=== PATIENT | male | born 1950 | race Hispanic/Latino ===

== ENCOUNTER 2017-07-04 23:26 | Emergency (ER) | payer MEDICARE ==
[2017-07-04] MEDS ORDERED: ASPIRIN 325 MG TABLET ONE (23:56)
[2017-07-04] MEDS ORDERED: NITROGLYCERIN 0.4 MG SL TAB SL ONE (23:57)
[2017-07-05 00:13] LABS: BASOPHILS % (AUTO) 0.4 % (0.0-5.0); EOSINOPHILS % (AUTO) 0.3 % (0.0-8.0); HEMATOCRIT 45.7 % (42-54); LYMPHOCYTES % (AUTO) 14.6 % (21.0-51.0); MEAN CORPUSCULAR HEMOGLOBIN 31.6 pg (27.0-33.0); MEAN CORPUSCULAR HGB CONC 35.2 g/dL (32.0-36.0); MEAN CORPUSCULAR VOLUME 89.6 fL (79-99); MONOCYTES % (AUTO) 6.7 % (3.0-13.0); PLATELET COUNT (AUTO) 160 K/uL (130-400); RED BLOOD CELL COUNT(AUTO) 5.11 MIL/uL (4.50-6.20); RED CELL DISTRIBUTION WIDTH 13.5 % (11.0-15.5)
[2017-07-05 00:20] LABS: CARBON DIOXIDE 30 mmol/L (21-32); CHLORIDE 99 mmol/L (101-111); GLOMERULAR FILTR. RATE CALC 80 mL/min (>60); GLUCOSE,RANDOM 117 mg/dL (70-105); POTASSIUM 4.1 mmol/L (3.5-5.1); SODIUM SERUM 138 mmol/L (136-145); UREA NITROGEN, BLOOD 13 mg/dL (7-18)
[2017-07-05 00:34] LABS: ALANINE AMINOTRANSFERASE 104 U/L (12-78); ALBUMIN 3.9 g/dL (3.5-5.0); ASPARTATE AMINOTRANSFERASE 91 U/L (10-37); BILIRUBIN,TOTAL 0.9 mg/dL (0.2-1.0); CREATINE KINASE MB 1.1 ng/mL (0.5-3.6); CREATINE KINASE, TOTAL 114 U/L (21-232); MYOGLOBIN 70 ng/mL (10-92); TROPONIN I < 0.04 ng/mL (0.00-0.06)
[2017-07-05] MEDS ORDERED: ONDANSETRON HCL MDV 20ML 2 MG/ML VIAL ONE (01:07)
== END 2017-07-05 03:26 | disposition home or self-care (01) ==
LOC: EDH 23:26
DX: R07.89 Other chest pain (principal); R42 Dizziness and giddiness; R11.0 Nausea; R53.1 Weakness; F14.10 Cocaine abuse, uncomplicated; Z72.0 Tobacco use
CPT/HCPCS: 36415; 71045; 80053; 82550; 82553; 83874; 84484; 85025; 93005; 96374

== ENCOUNTER 2017-08-12 18:52 | Emergency (ER) | payer MEDICARE, OTHER ==
[2017-08-12] MEDS ORDERED: ASPIRIN 325 MG TABLET ONE (19:10)
[2017-08-12 19:14] LABS: BASOPHILS % (AUTO) 0.5 % (0.0-5.0); EOSINOPHILS % (AUTO) 1.1 % (0.0-8.0); HEMATOCRIT 44.8 % (42-54); LYMPHOCYTES % (AUTO) 12.9 % (21.0-51.0); MEAN CORPUSCULAR HEMOGLOBIN 31.6 pg (27.0-33.0); MEAN CORPUSCULAR HGB CONC 34.8 g/dL (32.0-36.0); MEAN CORPUSCULAR VOLUME 90.6 fL (79-99); MONOCYTES % (AUTO) 7.7 % (3.0-13.0); NEUTROPHILS % (AUTO) 77.8 % (40.0-77.0); PLATELET COUNT (AUTO) 155 K/uL (130-400); RED BLOOD CELL COUNT(AUTO) 4.94 MIL/uL (4.50-6.20); RED CELL DISTRIBUTION WIDTH 13.4 % (11.0-15.5); WHITE BLOOD COUNT (AUTO) 6.7 K/uL (4.8-10.8)
[2017-08-12 19:33] LABS: CREATININE 1.1 mg/dL (0.5-1.5)
[2017-08-12 19:35] LABS: INR 0.92 (0.85-1.15); PARTIAL THROMBOPLASTIN TIME 24.3 SEC (26.3-35.5); PROTHROMBIN TIME 9.7 SEC (9.6-11.6)
[2017-08-12] MEDS ORDERED: SODIUM CHLORIDE 0.9% 1000ML 1,000 ML IV ONE (19:48)
[2017-08-12 19:51] LABS: APPEARANCE,URINE Clear (CLEAR); BILIRUBIN,URINE Negative (NEGATIVE); COLOR,URINE Yellow (YELLOW); GLUCOSE, URINE (UA) Negative (NEGATIVE); KETONES,URINE Negative (NEGATIVE); LEUKOCYTE ESTERASE ,URINE Negative (NEGATIVE); NITRATE,URINE Negative (NEGATIVE); OCCULT BLOOD,URINE Negative (NEGATIVE); PROTEIN,URINE Negative (NEGATIVE); UROBILINOGEN,URINE 0.2 mg/dL (0.2-1.0)
[2017-08-12 19:51] LABS: ALBUMIN 4.1 g/dL (3.5-5.0); BILIRUBIN,TOTAL 0.6 mg/dL (0.2-1.0); CREATINE KINASE MB 1.6 ng/mL (0.5-3.6); TOTAL PROTEIN, SERUM 8.3 g/dL (6.0-8.3)
[2017-08-12 19:58] LABS: AMPHET/METH SCREEN,URINE NEGATIVE (NEGATIVE); BARBITURATE SCREEN, URINE NEGATIVE (NEGATIVE); BENZODIAZEPINES SCREEN,URINE NEGATIVE (NEGATIVE); CANNABINOID SCREEN,URINE NEGATIVE (NEGATIVE); COCAINE SCREEN,URINE POSITIVE (NEGATIVE); OPIATE SCREEN,URINE NEGATIVE (NEGATIVE); PHENCYCLIDINE SCREEN,URINE NEGATIVE (NEGATIVE)
[2017-08-12 19:59] LABS: B-TYPE NATRIURETIC PEPTIDE 16 pg/mL (0-100)
== END 2017-08-12 20:44 | disposition home or self-care (01) ==
LOC: EDH 18:52
DX: E86.0 Dehydration (principal); R07.89 Other chest pain; R51 Headache; R42 Dizziness and giddiness; F41.9 Anxiety disorder, unspecified; F14.10 Cocaine abuse, uncomplicated
CPT/HCPCS: 36415; 71045; 80053; 80305; 81003; 82550; 82553; 83874; 83880; 84484; 85025; 85610; 85730; 93005; 94761; 96360; 99285; G0480; J7030

== ENCOUNTER 2018-01-31 05:45 | Emergency (ER) | payer OTHER ==
[2018-01-31 06:23] LABS: AMPHET/METH SCREEN,URINE NEGATIVE (NEGATIVE); BARBITURATE SCREEN, URINE NEGATIVE (NEGATIVE); BENZODIAZEPINES SCREEN,URINE NEGATIVE (NEGATIVE); CANNABINOID SCREEN,URINE NEGATIVE (NEGATIVE); COCAINE SCREEN,URINE POSITIVE (NEGATIVE); OPIATE SCREEN,URINE NEGATIVE (NEGATIVE); PHENCYCLIDINE SCREEN,URINE NEGATIVE (NEGATIVE)
[2018-01-31] MEDS ORDERED: LORAZEPAM 2 MG/ML 1 ML VIAL ONE (06:38)
== END 2018-01-31 09:23 | disposition home or self-care (01) ==
LOC: EDH 05:45
DX: G44.40 Drug-induced headache, not elsewhere classified, not intractable (principal); T40.5X5A Adverse effect of cocaine, initial encounter; F19.129 Other psychoactive substance abuse with intoxication, unspecified; Y92.89 Other specified places as the place of occurrence of the external cause
CPT/HCPCS: 36415; 70450; 80305; 84484; 93005; 96374; 99285; G0481; J2060

== ENCOUNTER 2018-02-28 16:46 | Observation (INO) | payer OTHER ==
[~2018-02-28] VITALS: Ht 180.3 cm; Wt 111.0 kg
[2018-02-28 17:46] LABS: BASOPHILS % (AUTO) 0.5 % (0.0-5.0); EOSINOPHILS % (AUTO) 0.8 % (0.0-8.0); HEMATOCRIT 37.8 % (42-54); LYMPHOCYTES % (AUTO) 11.4 % (21.0-51.0); MEAN CORPUSCULAR HEMOGLOBIN 34.1 pg (27.0-33.0); MEAN CORPUSCULAR HGB CONC 35.1 g/dL (32.0-36.0); MEAN CORPUSCULAR VOLUME 97.2 fL (79-99); MONOCYTES % (AUTO) 9.2 % (3.0-13.0); NEUTROPHILS % (AUTO) 78.1 % (40.0-77.0); NUCLEATED RED BLOOD CELLS 0.2 % (0.0-0.19); PLATELET COUNT (AUTO) 94 K/uL (130-400); RED BLOOD CELL COUNT(AUTO) 3.89 MIL/uL (4.50-6.20); RED CELL DISTRIBUTION WIDTH 15.8 % (11.0-15.5); WHITE BLOOD COUNT (AUTO) 7.1 K/uL (4.8-10.8)
[2018-02-28] MEDS ORDERED: HYDROXYZINE HCL 25 MG TABLET ONE (17:56)
[2018-02-28] MEDS ORDERED: HYDROCORTISONE SOD SUCCINATE 100 MG/2 ML VIAL ONE (17:56)
[2018-02-28] MEDS ORDERED: FAMOTIDINE/PF 20 MG/2 ML VIAL IV ONE (17:56)
[2018-02-28 17:58] LABS: CREATININE 1.1 mg/dL (0.5-1.5); POTASSIUM 4.2 mmol/L (3.5-5.1)
[2018-02-28 18:03] LABS: ALBUMIN 2.9 g/dL (3.5-5.0); BILIRUBIN,DIRECT 1.4 mg/dL (0.0-0.3); BILIRUBIN,TOTAL 1.6 mg/dL (0.2-1.0); TOTAL PROTEIN, SERUM 6.1 g/dL (6.0-8.3)
[2018-02-28 20:35] VITALS: BP 152/104
[2018-02-28] MEDS ORDERED: CLONIDINE HCL 0.1 MG TABLET PO PRN (21:00)
[2018-02-28] MEDS ORDERED: DIPHENHYDRAMINE HCL 25 MG CAPSULE PO PRN (21:00)
[2018-02-28] MEDS ORDERED: ONDANSETRON HCL 4 MG/2 ML VIAL IVP PRN (21:00)
[2018-02-28] MEDS ORDERED: SODIUM CHLORIDE 0.9% 10 ML VIAL IVP PRN (21:00)
[2018-02-28] MEDS: HYDROXYZINE HCL 25 MG TABLET PO SCH (22:07)
[2018-02-28] MEDS ORDERED: FAMO40TA75 PO (23:26)
[2018-02-28] MEDS ORDERED: CETI10TA86 PO (23:26)
[2018-02-28 23:45] VITALS: BP 151/77
[2018-03-01] MEDS: ZOLPIDEM TARTRATE 5 MG TAB PO PRN ×2 (00:09→22:32)
[2018-03-01] MEDS ORDERED: SODIUM CHLORIDE 0.9% 100 ML IV ONE (02:55)
[2018-03-01] MEDS: HYDROCORTISONE SOD SUCCINATE 250 MG/2 ML VIAL IVP SCH ×3 (03:05→21:34)
[2018-03-01 03:55] VITALS: BP 150/83
[2018-03-01 04:33] LABS: MEAN CORPUSCULAR HEMOGLOBIN 34.4 pg (27.0-33.0); MEAN CORPUSCULAR HGB CONC 35.2 g/dL (32.0-36.0); MEAN CORPUSCULAR VOLUME 97.7 fL (79-99); NUCLEATED RED BLOOD CELLS 0.1 % (0.0-0.19); PLATELET COUNT (AUTO) 85 K/uL (130-400); RED BLOOD CELL COUNT(AUTO) 3.48 MIL/uL (4.50-6.20); RED CELL DISTRIBUTION WIDTH 16.1 % (11.0-15.5); WHITE BLOOD COUNT (AUTO) 4.4 K/uL (4.8-10.8)
[2018-03-01 04:57] LABS: ALBUMIN 2.5 g/dL (3.5-5.0); BILIRUBIN,TOTAL 1.3 mg/dL (0.2-1.0); POTASSIUM 3.4 mmol/L (3.5-5.1); TOTAL PROTEIN, SERUM 5.5 g/dL (6.0-8.3)
[2018-03-01] MEDS ORDERED: GADODIAMIDE 10 MMOL/20 ML ML IV ONE (08:30)
[2018-03-01 08:44] VITALS: BP 166/78
[2018-03-01 08:45] LABS: LYMPHOCYTES % (MANUAL) 1 % (22-44); MAN.DIFF COMMENT-IMPRESSION MANUAL DIFFERENTIAL; MONOCYTES % (MANUAL) 3 % (2-9); REACTIVE LYMPHOCYTES 11 % (0-0); SEGMENTED NEUTROPHILS % 85 % (40-70)
[2018-03-01 08:48] LABS: HEMATOCRIT 35.3 % (42-54); MEAN CORPUSCULAR HEMOGLOBIN 34.2 pg (27.0-33.0); MEAN CORPUSCULAR VOLUME 97.9 fL (79-99); NUCLEATED RED BLOOD CELLS 0.2 % (0.0-0.19); PLATELET COUNT (AUTO) 80 K/uL (130-400); RED BLOOD CELL COUNT(AUTO) 3.61 MIL/uL (4.50-6.20); RED CELL DISTRIBUTION WIDTH 15.5 % (11.0-15.5); WHITE BLOOD COUNT (AUTO) 4.6 K/uL (4.8-10.8)
[2018-03-01] MEDS: HYDROXYZINE HCL 25 MG TABLET PO SCH ×3 (11:15→21:34)
[2018-03-01] MEDS: FAMOTIDINE/PF 20 MG/2 ML VIAL IV SCH (11:15)
[2018-03-01 12:37] VITALS: BP 168/88
[2018-03-01 16:59] VITALS: BP 115/77
[2018-03-02 00:58] VITALS: BP 148/109
[2018-03-02 02:35] VITALS: BP 147/73
[2018-03-02 04:28] VITALS: BP 133/81
[2018-03-02] MEDS: HYDROCORTISONE SOD SUCCINATE 250 MG/2 ML VIAL IVP SCH ×2 (05:56→14:00)
[2018-03-02 07:00] VITALS: BP 136/89
[2018-03-02] MEDS: HYDROXYZINE HCL 25 MG TABLET PO SCH ×2 (09:20→13:59)
[2018-03-02] MEDS: FAMOTIDINE/PF 20 MG/2 ML VIAL IV SCH (09:21)
[2018-03-02 11:00] VITALS: BP 151/111
== END 2018-03-02 16:30 | disposition home or self-care (01) ==
LOC: EDH 16:46 → EDHIP 17:25 → 3AH 19:57
PROVIDERS: ADMIT Internal Medicine; ATTEND Internal Medicine
DX: L29.9 Pruritus, unspecified (principal); C95.00 Acute leukemia of unspecified cell type not having achieved remission; R17 Unspecified jaundice; G47.00 Insomnia, unspecified; R94.5 Abnormal results of liver function studies; Z79.899 Other long term (current) drug therapy
CPT/HCPCS: 36415 ×2; 74183; 76705; 80048; 80053; 80076; 85025 ×2; 85027; 85060; 96374; 96375; 96376 ×2; 99284; A4510; A9579; G0378 ×47; J1720 ×4; J3490 ×4

== ENCOUNTER 2018-09-27 04:26 | Emergency (ER) | payer OTHER ==
[~2018-09-27 04:26] MED LIST: CETI10TA86 PO; FAMO40TA75 PO
[2018-09-27] MEDS ORDERED: ASPIRIN 325 MG TABLET ONE (04:44)
[2018-09-27 05:09] LABS: BASOPHILS % (AUTO) 0.4 % (0.0-5.0); EOSINOPHILS % (AUTO) 0.5 % (0.0-8.0); HEMATOCRIT 43.7 % (42-54); MEAN CORPUSCULAR HEMOGLOBIN 30.5 pg (27.0-33.0); MEAN CORPUSCULAR VOLUME 89.6 fL (79-99); MONOCYTES % (AUTO) 7.1 % (3.0-13.0); PLATELET COUNT (AUTO) 144 K/uL (130-400); RED BLOOD CELL COUNT(AUTO) 4.87 MIL/uL (4.50-6.20); RED CELL DISTRIBUTION WIDTH 15.1 % (11.0-15.5); WHITE BLOOD COUNT (AUTO) 5.8 K/uL (4.8-10.8)
[2018-09-27 05:19] LABS: POTASSIUM 3.7 mmol/L (3.5-5.1)
[2018-09-27 05:27] LABS: ALBUMIN 3.8 g/dL (3.5-5.0); BILIRUBIN,TOTAL 0.4 mg/dL (0.2-1.0); TOTAL PROTEIN, SERUM 7.4 g/dL (6.0-8.3)
[2018-09-27 05:27] LABS: AMPHET/METH SCREEN,URINE NEGATIVE (NEGATIVE); BARBITURATE SCREEN, URINE NEGATIVE (NEGATIVE); BENZODIAZEPINES SCREEN,URINE NEGATIVE (NEGATIVE); CANNABINOID SCREEN,URINE NEGATIVE (NEGATIVE); COCAINE SCREEN,URINE POSITIVE (NEGATIVE); OPIATE SCREEN,URINE NEGATIVE (NEGATIVE); PHENCYCLIDINE SCREEN,URINE NEGATIVE (NEGATIVE)
[2018-09-27 05:37] LABS: PARTIAL THROMBOPLASTIN TIME 28.3 SEC (26.3-35.5)
[2018-09-27 05:50] LABS: B-TYPE NATRIURETIC PEPTIDE 11 pg/mL (0-100)
== END 2018-09-27 06:51 | disposition home or self-care (01) ==
LOC: EDH 04:26
DX: R07.89 Other chest pain (principal); F14.10 Cocaine abuse, uncomplicated; E78.00 Pure hypercholesterolemia, unspecified; I10 Essential (primary) hypertension; Z72.0 Tobacco use
CPT/HCPCS: 36415; 71045; 80053; 80305; 82550; 83880; 84484; 85025; 85610; 85730; 93005

== ENCOUNTER 2019-08-06 04:50 | Emergency (ER) | payer OTHER ==
[2019-08-06 05:09] LABS: BASOPHILS % (AUTO) 0.5 % (0.0-5.0); EOSINOPHILS % (AUTO) 3.5 % (0.0-8.0); HEMATOCRIT 45.6 % (42-54); LYMPHOCYTES % (AUTO) 23.3 % (21.0-51.0); MEAN CORPUSCULAR HEMOGLOBIN 31.1 pg (27.0-33.0); MEAN CORPUSCULAR HGB CONC 35.1 g/dL (32.0-36.0); MEAN CORPUSCULAR VOLUME 88.5 fL (79-99); MONOCYTES % (AUTO) 7.6 % (3.0-13.0); NEUTROPHILS % (AUTO) 64.1 % (40.0-77.0); PLATELET COUNT (AUTO) 176 K/uL (130-400); RED BLOOD CELL COUNT(AUTO) 5.15 MIL/uL (4.50-6.20); RED CELL DISTRIBUTION WIDTH 12.8 % (11.0-15.5); WHITE BLOOD COUNT (AUTO) 5.9 K/uL (4.8-10.8)
[2019-08-06 05:17] LABS: RAPID GROUP A STREP NEGATIVE (NEGATIVE)
[2019-08-06 05:17] LABS: CREATININE 1.1 mg/dL (0.5-1.5); POTASSIUM 3.6 mmol/L (3.5-5.1)
[2019-08-06 05:21] LABS: INR 0.92 (0.85-1.15); PARTIAL THROMBOPLASTIN TIME 26.1 SEC (26.3-35.5)
[2019-08-06 05:22] LABS: ALBUMIN 4.1 g/dL (3.5-5.0); BILIRUBIN,TOTAL 0.3 mg/dL (0.2-1.0); TOTAL PROTEIN, SERUM 7.7 g/dL (6.0-8.3)
[2019-08-06 05:24] LABS: AMPHET/METH SCREEN,URINE NEGATIVE (NEGATIVE); BARBITURATE SCREEN, URINE NEGATIVE (NEGATIVE); BENZODIAZEPINES SCREEN,URINE NEGATIVE (NEGATIVE); CANNABINOID SCREEN,URINE NEGATIVE (NEGATIVE); COCAINE SCREEN,URINE NEGATIVE (NEGATIVE); OPIATE SCREEN,URINE NEGATIVE (NEGATIVE); PHENCYCLIDINE SCREEN,URINE NEGATIVE (NEGATIVE)
== END 2019-08-06 06:44 | disposition home or self-care (01) ==
LOC: EDH 04:50
DX: R07.89 Other chest pain (principal); E78.00 Pure hypercholesterolemia, unspecified; I10 Essential (primary) hypertension
CPT/HCPCS: 36415; 71045; 80053; 80305; 82550; 84484; 85025; 85610; 85730; 87804; 87880; 93005

== ENCOUNTER 2019-09-05 00:12 | Emergency (ER) | payer OTHER ==
[2019-09-05] MEDS ORDERED: PANTOPRAZOLE 40 MG/VIAL IVP ONE (00:13)
[2019-09-05] MEDS ORDERED: ASPIRIN 325 MG TABLET ONE (00:32)
[2019-09-05 00:51] LABS: BASOPHILS % (AUTO) 0.8 % (0.0-5.0); EOSINOPHILS % (AUTO) 5.9 % (0.0-8.0); HEMATOCRIT 47.1 % (42-54); LYMPHOCYTES % (AUTO) 24.2 % (21.0-51.0); MEAN CORPUSCULAR HEMOGLOBIN 30.7 pg (27.0-33.0); MEAN CORPUSCULAR HGB CONC 34.2 g/dL (32.0-36.0); MEAN CORPUSCULAR VOLUME 89.7 fL (79-99); MONOCYTES % (AUTO) 12.1 % (3.0-13.0); NEUTROPHILS % (AUTO) 55.1 % (40.0-77.0); PLATELET COUNT (AUTO) 150 K/uL (130-400); RED BLOOD CELL COUNT(AUTO) 5.25 MIL/uL (4.50-6.20); RED CELL DISTRIBUTION WIDTH 13.6 % (11.0-15.5); WHITE BLOOD COUNT (AUTO) 4.7 K/uL (4.8-10.8)
[2019-09-05 00:52] LABS: CREATININE 1.2 mg/dL (0.5-1.5); POTASSIUM 3.8 mmol/L (3.5-5.1)
[2019-09-05 00:57] LABS: ALBUMIN 3.7 g/dL (3.5-5.0); BILIRUBIN,TOTAL 0.4 mg/dL (0.2-1.0); TOTAL PROTEIN, SERUM 7.1 g/dL (6.0-8.3)
[2019-09-05 00:58] LABS: INR 0.95 (0.85-1.15); PARTIAL THROMBOPLASTIN TIME 25.7 SEC (26.3-35.5); PROTHROMBIN TIME 10.3 SEC (9.6-11.6)
[2019-09-05 01:35] LABS: B-TYPE NATRIURETIC PEPTIDE 7 pg/mL (0-100)
[2019-09-05] MEDS ORDERED: LIDOCAINE HCL 2% VISCOUS 15 ML UDCUP ONE (01:54)
[2019-09-05] MEDS ORDERED: MAG HYDROX/AL HYDROX/SIMETH ES 30 ML SUSP UDCUP ONE (01:55)
[2019-09-05] MEDS ORDERED: ONDANSETRON HCL 4 MG/2 ML VIAL ONE (01:55)
[2019-09-05] MEDS ORDERED: FAMOTIDINE/PF 20 MG/2 ML VIAL IV ONE (01:56)
== END 2019-09-05 02:14 | disposition home or self-care (01) ==
LOC: EDH 00:12
DX: K29.70 Gastritis, unspecified, without bleeding (principal); I10 Essential (primary) hypertension; E78.00 Pure hypercholesterolemia, unspecified; F14.10 Cocaine abuse, uncomplicated; F10.10 Alcohol abuse, uncomplicated
CPT/HCPCS: 36415; 71045; 80053; 82550; 83690; 83880; 84484; 85025; 85610; 85730; 93005; 96374; 96375; 99285; C9113; J2405; J3490

== ENCOUNTER 2020-06-23 04:19 | Emergency (ER) | payer OTHER ==
[2020-06-23 04:43] LABS: APPEARANCE,URINE Clear (CLEAR); BILIRUBIN,URINE Negative (NEGATIVE); COLOR,URINE Yellow (YELLOW); GLUCOSE, URINE (UA) Negative (NEGATIVE); KETONES,URINE Negative (NEGATIVE); LEUKOCYTE ESTERASE ,URINE Negative (NEGATIVE); NITRATE,URINE Negative (NEGATIVE); OCCULT BLOOD,URINE Small (NEGATIVE); PROTEIN,URINE Negative (NEGATIVE); UROBILINOGEN,URINE 0.2 mg/dL (0.2-1.0)
[2020-06-23 04:47] LABS: BACTERIA,URINE None Seen /HPF (None Seen); RBC,URINE 0-1 /HPF (0-1); WBC,URINE None Seen /HPF (0-1)
[2020-06-23] MEDS ORDERED: ONDANSETRON HCL 4 MG/2 ML VIAL ONE (04:48)
[2020-06-23] MEDS ORDERED: SODIUM CHLORIDE 0.9% 1000ML 1,000 ML IV ONE (04:49)
[2020-06-23 04:50] LABS: AMPHET/METH SCREEN,URINE NEGATIVE (NEGATIVE); BARBITURATE SCREEN, URINE NEGATIVE (NEGATIVE); BENZODIAZEPINES SCREEN,URINE NEGATIVE (NEGATIVE); CANNABINOID SCREEN,URINE NEGATIVE (NEGATIVE); COCAINE SCREEN,URINE POSITIVE (NEGATIVE); OPIATE SCREEN,URINE NEGATIVE (NEGATIVE); PHENCYCLIDINE SCREEN,URINE NEGATIVE (NEGATIVE)
[2020-06-23 05:04] LABS: BASOPHILS % (AUTO) 0.4 % (0.0-5.0); EOSINOPHILS % (AUTO) 1.1 % (0.0-8.0); HEMATOCRIT 43.9 % (42-54); LYMPHOCYTES % (AUTO) 15.6 % (21.0-51.0); MEAN CORPUSCULAR HGB CONC 35.5 g/dL (32.0-36.0); MEAN CORPUSCULAR VOLUME 87.3 fL (79-99); MONOCYTES % (AUTO) 9.3 % (3.0-13.0); NEUTROPHILS % (AUTO) 72.5 % (40.0-77.0); PLATELET COUNT (AUTO) 196 K/uL (130-400); RED BLOOD CELL COUNT(AUTO) 5.03 MIL/uL (4.50-6.20); RED CELL DISTRIBUTION WIDTH 12.4 % (11.0-15.5); WHITE BLOOD COUNT (AUTO) 8.3 K/uL (4.8-10.8)
[2020-06-23 05:17] LABS: PROTHROMBIN TIME 10.9 SEC (9.6-11.6)
[2020-06-23 05:18] LABS: PARTIAL THROMBOPLASTIN TIME 28.1 SEC (26.3-35.5)
[2020-06-23 05:29] LABS: POTASSIUM 3.6 mmol/L (3.5-5.1)
[2020-06-23 05:31] LABS: ALBUMIN 4.2 g/dL (3.5-5.0); BILIRUBIN,TOTAL 0.8 mg/dL (0.2-1.0); TOTAL PROTEIN, SERUM 7.9 g/dL (6.0-8.3)
[2020-06-23] MEDS ORDERED: KETOROLAC TROMETHAMINE 30MG/ML ONE (05:32)
[2020-06-23] MEDS ORDERED: ACETAMINOPHEN EXTRA STRENGTH 500 MG TABLET ONE (05:33)
== END 2020-06-23 06:33 | disposition home or self-care (01) ==
LOC: EDH 04:19
DX: E86.0 Dehydration (principal); F19.10 Other psychoactive substance abuse, uncomplicated; R07.89 Other chest pain; R11.0 Nausea; F10.10 Alcohol abuse, uncomplicated; F14.10 Cocaine abuse, uncomplicated; I10 Essential (primary) hypertension; E78.00 Pure hypercholesterolemia, unspecified; Z72.0 Tobacco use
CPT/HCPCS: 36415; 71045; 80053; 80305; 81001; 83690; 84484; 85025; 85610; 85730; 93005; 96361; 96374; 96375; 99285; J1885; J2405; J7030

== ENCOUNTER 2023-03-05 05:45 | Emergency (ER) | payer OTHER ==
[~2023-03-05] VITALS: Ht 172.7 cm; Wt 77.1 kg
[~2023-03-05 05:45] MED LIST changes: -CETI10TA86 PO; +CETI10TA87 PO
[2023-03-05 06:19] LABS: BASOPHILS # (AUTO) 0.03 K/uL (0.00-0.20); BASOPHILS % (AUTO) 0.4 % (0.0-5.0); EOSINOPHILS # (AUTO) 0.05 K/uL (0.00-0.70); EOSINOPHILS % (AUTO) 0.7 % (0.0-8.0); HEMATOCRIT 38.7 % (42-54); IMMATURE GRANULOCYTE ABSOLUTE 0.14 K/uL (0-1); LYMPHOCYTES # (AUTO) 1.1 K/uL (1.0-4.8); LYMPHOCYTES % (AUTO) 13.7 % (21.0-51.0); MEAN CORPUSCULAR HEMOGLOBIN 29.9 pg (27.0-33.0); MEAN CORPUSCULAR HGB CONC 34.9 g/dL (32.0-36.0); MEAN CORPUSCULAR VOLUME 85.8 fL (79-99); MONOCYTES # (AUTO) 0.5 K/uL (0.1-1.0); NEUTROPHILS # (AUTO) 5.9 K/uL (1.8-7.7); NEUTROPHILS % (AUTO) 76.4 % (40.0-77.0); PLATELET COUNT (AUTO) 203 K/uL (130-400); RED BLOOD CELL COUNT(AUTO) 4.51 MIL/uL (4.50-6.20); WHITE BLOOD COUNT (AUTO) 7.7 K/uL (4.8-10.8)
[2023-03-05 06:30] LABS: CREATININE 0.8 mg/dL (0.5-1.5); POTASSIUM 3.7 mmol/L (3.5-5.1)
[2023-03-05] MEDS ORDERED: FAMOTIDINE 20MG VIAL IV ONE (06:30)
[2023-03-05] MEDS ORDERED: METOCLOPRAMIDE 10 MG/2 ML VIAL IVP ONE (06:30)
[2023-03-05] MEDS ORDERED: LIDOCAINE HCL 2% VISCOUS 15 ML UDCUP PO ONE (06:30)
[2023-03-05] MEDS ORDERED: MAG/ALUM/SIMETH 30 ML UDCUP PO ONE (06:30)
[2023-03-05] MEDS ORDERED: DICYCLOMINE HCL 10 MG/5 ML ML PO ONE (06:30)
[2023-03-05 06:36] LABS: APPEARANCE,URINE CLEAR (CLEAR); BILIRUBIN,URINE NEGATIVE (NEGATIVE); COLOR,URINE COLORLESS (YELLOW); GLUCOSE, URINE (UA) NEGATIVE (NEGATIVE); KETONES,URINE NEGATIVE (NEGATIVE); LEUKOCYTE ESTERASE ,URINE NEGATIVE Leu/uL (NEGATIVE); NITRATE,URINE NEGATIVE (NEGATIVE); OCCULT BLOOD,URINE NEGATIVE (NEGATIVE); PROTEIN,URINE NEGATIVE (NEGATIVE); UROBILINOGEN,URINE 0.2 mg/dL (0.2-1.0)
[2023-03-05 06:38] LABS: ALBUMIN 3.4 g/dL (3.5-5.0); BILIRUBIN,TOTAL 0.5 mg/dL (0.2-1.0); TOTAL PROTEIN, SERUM 7.3 g/dL (6.0-8.3)
[2023-03-05 06:43] LABS: ADD UA MICROSCOPIC NO
[2023-03-05] MEDS ORDERED: LORAZEPAM 2 MG/ML 1 ML VIAL IVP ONE (07:00)
[2023-03-05 07:03] LABS: INR < 0.93 (0.85-1.15); PROTHROMBIN TIME 10.6 SEC (9.6-11.6)
[2023-03-05 07:04] LABS: PARTIAL THROMBOPLASTIN TIME 28.3 SEC (26.3-35.5)
[2023-03-05 07:05] LABS: AMPHET/METH SCREEN,URINE NEGATIVE (NEGATIVE); BARBITURATE SCREEN, URINE NEGATIVE (NEGATIVE); BENZODIAZEPINES SCREEN,URINE NEGATIVE (NEGATIVE); CANNABINOID SCREEN,URINE NEGATIVE (NEGATIVE); COCAINE SCREEN,URINE POSITIVE (NEGATIVE); OPIATE SCREEN,URINE NEGATIVE (NEGATIVE); PHENCYCLIDINE SCREEN,URINE NEGATIVE (NEGATIVE)
[2023-03-05 07:27] VITALS: BP 131/68; PULSE 74; RESP 16; O2SAT 98
== END 2023-03-05 07:50 | disposition home or self-care (01) ==
LOC: EDH 05:45
DX: K29.70 Gastritis, unspecified, without bleeding (principal); F14.90 Cocaine use, unspecified, uncomplicated; F10.90 Alcohol use, unspecified, uncomplicated; E78.00 Pure hypercholesterolemia, unspecified; I10 Essential (primary) hypertension; Y90.3 Blood alcohol level of 60-79 mg/100 ml
CPT/HCPCS: 99285; 96374; 71045; 96375; 84484; 80053; 83880; 80305; 83690; 85025; 85610; 85730; 81003; 36415; 93005; J3490; J2060; J2765